=== PATIENT | female | born 1980 | race Caucasian/White ===

== ENCOUNTER 2021-07-08 12:35 | Emergency (ER) | payer OTHER, SELFPAY ==
--- NOTE | ~2021-07-08 | CT_ITS ---
EXAMINATION: CT SOFT TISSUE NECK WITH CONTRAST CLINICAL INFORMATION: Significant swelling to left side of neck. COMPARISON: None TECHNIQUE: Following the intravenous administration of 60 mL of Omnipaque 350 intravenous contrast, helical imaging was performed in the axial plane with generation of coronal and sagittal reformatted images. This CT examination was performed using dose optimization techniques as appropriate, variously including the following: *Automated exposure control *Adjustment of mA and/or kV according to patient size (this includes techniques or standardized protocols for targeted exams where dose is matched to indication/reason for exam; i.e. extremities or head) *Use of iterative reconstruction technique DLP: 424 mGy-cm FINDINGS: There is left-sided multilevel cervical adenopathy, the largest lymph node at the level II level measuring up to 2 cm in diameter. A left-sided level III lymph node demonstrates mild heterogeneous low-density change and peripheral enhancement, measuring 1.4 cm in long axis measurement the axial plane. No contour abnormality or pathologic enhancement is seen within the oral cavity, pharyngeal mucosal space, or larynx. The thyroid gland is normal. The submandibular and parotid glands are homogeneous in attenuation. No right-sided cervical adenopathy is evident. Internal jugular chain lymph nodes on the right side measure up to 1 cm in diameter. The airway is normally maintained. The superior mediastinum and visualized portions of the axillae appear normal. There are mild subsegmental atelectatic changes at the lung apices. No acute osseous abnormality seen. Mild to moderate lower cervical spondylosis noted. There is periapical lucency associated with the left maxillary canine. Scattered dental caries noted. The imaged paranasal sinuses, mastoid air cells, and middle ear cavities are well aerated. The TMJs are normal. The orbits appear normal. The imaged portions of the brain demonstrate no acute abnormality the visualized intracranial venous sinuses opacify normally. CT/CT soft tissue neck w con IMPRESSION: Multilevel left-sided cervical adenopathy of indeterminate etiology. Mild surrounding soft tissue reticulation which may indicate an underlying infectious or inflammatory disease process. A lymphoproliferative disease process cannot be ruled out on the basis of imaging. Recommend clinical correlation.
[2021-07-08 12:43] VITALS: BP 152/89; PULSE 86; RESP 18; TEMP 36.9; O2SAT 99; BMI 29.2
--- NOTE | 2021-07-08 13:09 | ED_ITS ---
HPI - General Adult General Chief complaint: General Medical Stated complaint: sore on tongue swollen neck Time Seen by Provider: 07/08/21 13:09 Source: patient Mode of arrival: ambulatory Limitations: no limitations History of Present Illness HPI narrative: Patient is a 41 year old female presenting to the emergency department today with a tongue lesion. Patient states that for the last few days, she has noticed a lesion on the left side of her tongue that she would like to be examined today. Patient states that she also noticed a growth on the left side of her neck that she would like checked out. Patient denies any dizziness, lightheadedness, abdominal pain, nausea, vomiting, fever, chills, blurry vision, double vision, loss of vision, chest pain, difficulty breathing, shortness of breath, back pain, night sweats, pain with urination, increased urinary frequency, increased urinary urgency, blood in her urine or stool, syncope or a near syncopal episode, recent trauma or falls, bowel incontinence, bladder incontinence, bowel retention, bladder retention, or any other complaints at this time. Patient states that she had COVID a few weeks ago and has a family history of cancer. Onset (ago): day(s) Relieving factors: none Exacerbating factors: none Related Data Previous Rx's Medication Instructions Recorded amoxicillin 875 mg-potassium 1 tab PO BID 10 Days #20 tab 07/08/21 clavulanate 125 mg tablet (Augmentin) Allergies Allergy/AdvReac Type Severity Reaction Status Date / Time No Known Allergies Allergy Verified 07/08/21 13:13 Review of Systems Verdana 4l Constitutional: Verdana 4d Constitutional: Verdana 4d Verdana 4d Reports no additional constitutional complaints, Denies chills, Denies fever(s) and Denies night sweats Verdana 4l Eyes: Verdana 4d Verdana 4d Eyes: Verdana 4d Reports no additional eye complaints, Denies blurry vision, Denies change in vision, Denies diplopia, Denies eye discharge, Denies loss of vision and Denies eye pain Verdana 4l ENT: Verdana 4d Denies dizziness Verdana 4d Comments: Verdana 4d Verdana 4d tongue lesion, left sided neck mass Verdana 4d Verdana 4l Cardiovascular: Verdana 4d Cardiovascular: Verdana 4d Verdana 4d Reports no additional cardiovascular complaints, Denies chest pain, Denies lightheadedness, Denies Loss of Consciousness and Denies dyspnea Verdana 4l Respiratory: Verdana 4d Verdana 4d Respiratory: Verdana 4d Reports no additional respiratory complaints and Denies dyspnea Verdana 4l Gastrointestinal: Verdana 4d Gastrointestinal: Verdana 4d Verdana 4d Reports no additional gastrointestinal complaints, Denies abdominal pain, Denies melena, Denies hematochezia, Denies change in bowel habits and Denies change in stool character Verdana 4l Genitourinary: Verdana 4d Verdana 4d Genitourinary: Verdana 4d Denies hematuria, Denies urinary frequency, Denies dysuria, Denies urinary incontinence, Denies urinary hesitancy and Denies urinary urgency Verdana 4l Musculoskeletal: Verdana 4d Musculoskeletal: Verdana 4d Verdana 4d Reports no additional musculoskeletal complaints, Denies numbness and Denies tingling Verdana 4l Neurologic: Verdana 4d Denies dizziness, Denies loss of vision, Denies numbness and Denies tingling Verdana 4l Psychiatric: Verdana 4d Verdana 4d Psychiatric: Verdana 4d Reports no additional psychiatric complaints Verdana 4l Endocrine: Verdana 4d Verdana 4d Endocrine: Verdana 4d Reports no additional endocrine complaints Verdana 4l Hematologic/Lymphatic: Verdana 4d Hematologic/Lymphatic: Verdana 4d Verdana 4d Reports no additional hematologic/lymphatic complaints Verdana 4l Allergic/Immunologic: Verdana 4d Allergic/Immunologic: Verdana 4d Verdana 4d Reports no additional allergic/immunologic complaints PMFSH Past Medical History Attestation statement: The following information was validated with the patient. Source: old records reviewed Medical History History of treatment for substance use disorder No known health problems Social History Social History Advance Directives: No Advance Directives Information Provided: Yes Patient : No Physical Exam Verdana 4l Vital Signs: Verdana 4d Verdana 4d Vital Signs: Verdana 4d Verdana 4Bd Last Vital Signs Verdana 4d Dental Laboratory Supervisor New 4d Dental Laboratory Supervisor New 4d Temp 98.4 F 07/08/21 12:43 Dental Laboratory Supervisor New 4d Pulse 72 07/08/21 15:54 Dental Laboratory Supervisor New 4d Resp 18 07/08/21 15:54 BP 133/79 07/08/21 15:54 Pulse Ox 98 07/08/21 15:54 BMI result Body Mass Index 29.2 Const: General: cooperative, no acute distress, alert and awake Nutritional Appearance: well nourished Orientation/consciousness: patient oriented x3 Limitations: no limitations HENMT: Head: Yes normal to inspection and Yes atraumatic Ears: hearing grossly normal bilaterally and external ears normal General nose exam: Normal external nose present, no nasal discharge noted and no epistaxis Face and sinus: Yes normal facial exam, No abrasion and No laceration Mouth: Normal oral and palatal mucosa present, no drooling and no muffled voice Teeth and gingiva: caries, poor dentition and other (small lesion to the front left part of the tongue) Eyes: General: appearance normal, both eyes and all related structures Periorbital: periorbital findings normal Eyelids: Yes eyelids normal Conjunctivae: conjunctivae normal Pupils: Equal, round and reactive pupils present EOM: EOMs intact bilaterally Neck: Neck: Yes normal visual inspection and Yes full ROM Lymphatic: lymphadenopathy left anterior cervical single and large Chest: Chest palpation & inspection: normal inspection of the chest Resp: Effort & Inspection: normal respiratory effort and able to speak in complete sentences Auscultation: clear to auscultation bilaterally Cardio: Rate: regular rate Rhythm: regular rhythm GI: Inspection: Yes normal to inspection Neuro: General: patient oriented x3 and moves all extremities Cranial nerves: Yes Equal, round and reactive pupils present Cognition (Neuro): normal cognition Motor exam (neuro): 5/5 motor strength present throughout Sensory Exam: Normal double simultaneous stimulation for sensation Coordination: [id number] test normal Extrem: General: Yes normal to inspection, Yes full ROM and Yes capillary refill normal Psych: Appearance: grossly normal Mental Status: mental status grossly normal A ffect: normal affect Attitude: cooperative Thought process: Normal thought process present Thought content: Normal thought content present Insight: Good insight present (Psych) Medical Decision Making MDM Narrative Medical decision making narrative: Patient is a 41 year old female presenting to the emergency department today with a tongue lesion and left sided neck swelling. Patient's physical exam showed a relatively large swollen lymph node on the left side of her cervical neck as well as a small avulsion type lesion on the tip of the left side of her tongue. Patient's blood work showed a leukopenia but no additional signs of a hematologic or oncologic concern. I suspect the patient's leukopenia is secondary to the patient's recent COVID-19 infection. Patient's ESR and CRP were slightly elevated. Patient's CT soft tissue neck showed multilevel left-sided cervical adenopathy of indeterminate etiology, mild surrounding soft tissue reticulation which may indicate an underlying infectious or inflammatory disease process, lymphoproliferative disease process cannot be ruled out on the basis of imaging. Recommend clinical correlation. I'm suspicious of an infectious process due to the patients extensive poor dentition and dental caries. Patient will be treated with antibiotics and given strict return precautions as well as follow up information for a Heme/Onc provider to ensure follow up on the cervical lymphadenopathy. I explained my physical exam findings as well as all test results to the patient. I answered all questions asked by the patient. I stresse d the importance of the patient taking her medication as prescribed. I stressed the importance of the patient following up with her primary care provider, dentist, and heme/onc provider. I stressed the importance of the patient returning to the emergency department immediately if her symptoms were to worsen or if she were to develop any dizziness, shortness of breath, difficulty breathing, chest pain, blurry vision, loss of vision, nausea, vomiting, abdominal pain, fever, chills, back pain, or any other complaints. Patient verbalized agreement and understanding with this treatment plan and discharge. Differential Diagnosis Differential Diagnosis: lymphoma, dental abscess, peritonsilar abscess Medical Records Medical records reviewed: Yes I reviewed the patient's medical records. Lab Data Lab results reviewed: Yes I reviewed the patient's lab results. Result diagrams: 07/08/21 13:47 07/08/21 13:47 Labs: Lab Results 07/08/21 07/08/21 07/08/21 Range/Units 13:47 13:47 13:47 WBC 3.8 L (4.8-10.8) X10*3/uL RBC 4.22 (4.20-5.50) X10*6/uL Hgb 12.1 (12.0-16.0) g/dl Hct 35.7 L (37.0-47.0) % MCV 84.6 (80.0-98.0) fL MCH 28.7 (27.0-33.0) pg MCHC 33.9 (31.0-35.0) g/dl RDW 12.0 (11.0-16.0) % Plt Count 168 (160-400) X10*3/uL MPV 9.9 (9.4-12.3) fL Immature Gran % (Auto) 0.5 H (0.0-0.4) % Neut % (Auto) 45.3 (45-73) % Lymph % (Auto) 34.6 (20-40) % Lipscomb % (Auto) 15.6 H (2-11) % Eos % (Auto) 3.2 (0-4) % Baso % (Auto) 0.8 (0-2) % Lymph # (Auto) 1.3 (1.2-4.9) X10*3/uL Lipscomb # (Auto) 0.6 (0.1-1.2) X10*3/uL Eos # (Auto) 0.1 (0.0-0.4) X10*3/uL Baso # (Auto) 0.0 (0.0-0.2) X10*3/uL Abs Immat Gran (auto) 0.02 (0.00-0.03) X10*3/uL Absolute Neuts (auto) 1.7 L (2.0-8.3) x10*3/uL Absolute Nucleated RBC 0.000 (0.0-0.012) X10*3/uL Nucleated RBC % (auto) 0.0 (0.0-0.2) /100WBC ESR (0-20) MM/HR Sodium 141 (135-145) mmol/L Potassium 4.9 (3.3-5.1) mmol/L Chloride 107 (96-108) mmol/L Carbon Dioxide 26 (22-29) mmol/L Anion Gap 13 (12-20) BUN 12 (9-16) mg/dL Creatinine 0.82 (0.5-1.4) mg/dL Estim Creat Clear Calc 92.6 Estimated GFR > 60 Fasting Glucose 100 H (60-99) mg/dL Calcium 9.0 (8.4-10.2) mg/dL Magnesium 1.9 (1.6-2.6) mg/dL Total Bilirubin 0.4 (0.0-1.0) mg/dL AST 34 H (5-31) U/L ALT 41 H (0-31) U/L Alkaline Phosphatase 110 (39-117) U/L C-Reactive Protein 3.62 H (< or = 0.50) mg/dL C-React Prot High Sens Total Protein 7.6 (6.5-8.0) g/dL Albumin 4.0 (3.5-5.0) g/dL HIV-1 RNA copies/mL Cancelled HIV-1 RNA logcopies/mL Cancelled 07/08/21 07/08/21 Range/Units 13:47 13:47 WBC (4.8-10.8) X10*3/uL RBC (4.20-5.50) X10*6/uL Hgb (12.0-16.0) g/dl Hct (37.0-47.0) % MCV (80.0-98.0) fL MCH (27.0-33.0) pg MCHC (31.0-35.0) g/dl RDW (11.0-16.0) % Plt Count (160-400) X10*3/uL MPV (9.4-12.3) fL Immature Gran % (Auto) (0.0-0.4) % Neut % (Auto) (45-73) % Lymph % (Auto) (20-40) % Lipscomb % (Auto) (2-11) % Eos % (Auto) (0-4) % Baso % (Auto) (0-2) % Lymph # (Auto) (1.2-4.9) X10*3/uL [place]comb # (Auto) (0.1-1.2) X10*3/uL Eos # (Auto) (0.0-0.4) X10*3/uL Baso # (Auto) (0.0-0.2) X10*3/uL Abs Immat Gran (auto) (0.00-0.03) X10*3/uL Absolute Neuts (auto) (2.0-8.3) x10*3/uL Absolute Nucleated RBC (0.0-0.012) X10*3/uL Nucleated RBC % (auto) (0.0-0.2) /100WBC ESR 31 H (0-20) MM/HR Sodium (135-145) mmol/L Potassium (3.3-5.1) mmol/L Chloride (96-108) mmol/L Carbon Dioxide (22-29) mmol/L Anion Gap (12-20) BUN (9-16) mg/dL Creatinine (0.5-1.4) mg/dL Estim Creat Clear Calc Estimated GFR Fasting Glucose (60-99) mg/dL Calcium (8.4-10.2) mg/dL Magnesium (1.6-2.6) mg/dL Total Bilirubin (0.0-1.0) mg/dL AST (5-31) U/L ALT (0-31) U/L Alkaline Phosphatase (39-117) U/L C-Reactive Protein (< or = 0.50) mg/dL C-React Prot High Sens Cancelled Total Protein (6.5-8.0) g/dL Albumin (3.5-5.0) g/dL HIV-1 RNA copies/mL HIV-1 RNA logcopies/mL Imaging Data CT soft tissue neck: Attestation: I personally reviewed and interpreted this imaging study as follows: Radiologist's impression: EXAMINATION: CT SOFT TISSUE NECK WITH CONTRAST CLINICAL INFORMATION: Significant swelling to left side of neck.? COMPARISON: None? TECHNIQUE: Following the intravenous administration of 60 mL of Omnipaque 350 intravenous contrast, helical imaging was performed in the axial plane with generation of coronal and sagittal reformatted images. This CT examination was performed using dose optimization techniques as appropriate, variously including the following: *Automated exposure control *Adjustment of mA and/or kV according to patient size (this includes techniques or standardized protocols for targeted exams where dose is matched to indication/reason for exam; i.e. extremities or head) *Use of iterative reconstruction technique DLP: 424 mGy-cm FINDINGS: There is left-sided multilevel cervical adenopathy, the largest lymph node at the level II level measuring up to 2 cm in diameter. A left-sided level III lymph node demonstrates mild heterogeneous low-density change and peripheral enhancement, measuring 1.4 cm in long axis measurement the axial plane. No contour abnormality or pathologic enhancement is seen within the oral cavity, pharyngeal mucosal space, or larynx. The thyroid gland is normal. The submandibular and parotid glands are homogeneous in attenuation. No right-sided cervical adenopathy is evident. Internal jugular chain lymph nodes on the right side measure up to 1 cm in diameter. The airway is normally maintained. The superior mediastinum and visualized portions of the axillae appear normal. There are mild subsegmental atelectatic changes at the lung apices. No acute osseous abnormality seen. Mild to moderate lower cervical spondylosis noted. There is periapical lucency associated with the left maxillary canine. Scattered dental caries noted. The imaged paranasal sinuses, mastoid air cells, and middle ear cavities are well aerated. The TMJs are normal. The orbits appear normal. The imaged portions of the brain demonstrate no acute abnormality the visualized intracranial venous sinuses opacify normally. CT/CT soft tissue neck w con IMPRESSION: Multilevel left-sided cervical adenopathy of indeterminate etiology. Mild surrounding soft tissue reticulation which may indicate an underlying infectious or inflammatory disease process. A lymphoproliferative disease process cannot be ruled out on the basis of imaging. Recommend clinical correlation. Dictated By: ROMEO HILLIARD MD Signed By: Electronically signed by ROMEO HILLIARD MD 07/08/21 1539 Discharge Plan Discharge Clinical Impression: Lymphadenopathy Patient Disposition: Home, Self-Care Instructions: Lymphadenopathy (ED) Additional Instructions: Call to discuss finding and establishing with a primary care provider. Call or visit any of the clinics below to establish with a dentist: [facility] [address] [place] [address] [facility] [address] [facility], [address] [place] [address] [address] [facility] [address] [place] [id number] [facility] [address] [place] [address] [place] [address] [place] [address] Prescriptions: New amoxicillin-pot clavulanate [Augmentin] 875-125 mg tablet 1 tab PO BID 10 Days Qty: 20 0RF Referrals: Socorro Rosenthal MD [Physician] - 2 days Interventions: ED Discharge Assessment Last Done: 07/08/21 16:07 Discharge Date/Time: 07/08/21 16:08 Print Language: Albanian
[2021-07-08 13:53] LABS: MANUAL DIFF FLAG NO
[2021-07-08 13:59] LABS: Basophils Percent Auto 0.8 % (0-2); Eosinophils Absolute Auto 0.1 X10*3/uL (0.0-0.4); Eosinophils Percent Auto 3.2 % (0-4); Hematocrit 35.7 % (37.0-47.0); Hemoglobin 12.1 g/dl (12.0-16.0); Imm Gran Abs Auto 0.02 X10*3/uL (0.00-0.03); Imm Gran Pct Auto 0.5 % (0.0-0.4); Lymphocytes Absolute Auto 1.3 X10*3/uL (1.2-4.9); Lymphocytes Percent Auto 34.6 % (20-40); Mean Corpuscular HGB Conc 33.9 g/dl (31.0-35.0); Mean Corpuscular Hemoglobin 28.7 pg (27.0-33.0); Mean Corpuscular Volume 84.6 fL (80.0-98.0); Mean Platelet Volume 9.9 fL (9.4-12.3); Monocytes Absolute Auto 0.6 X10*3/uL (0.1-1.2); Monocytes Percent Auto 15.6 % (2-11); Neutrophils Absolute Auto 1.7 x10*3/uL (2.0-8.3); Neutrophils Percent Auto 45.3 % (45-73); Platelet Count 168 X10*3/uL (160-400); Red Blood Count 4.22 X10*6/uL (4.20-5.50); White Blood Count 3.8 X10*3/uL (4.8-10.8)
[2021-07-08 14:28] LABS: Erythrocyte Sedimentation Rate 31 MM/HR (0-20)
[2021-07-08 14:33] LABS: Alanine Aminotransferase 41 U/L (0-31); Alkaline Phosphatase 110 U/L (39-117); Anion Gap 13 (12-20); Aspartate Amino Transferase 34 U/L (5-31); Bilirubin Total 0.4 mg/dL (0.0-1.0); Blood Urea Nitrogen 12 mg/dL (9-16); C Reactive Protein 3.62 mg/dL (< or = 0.50); Carbon Dioxide 26 mmol/L (22-29); Chloride 107 mmol/L (96-108); Creatinine Clr Calc Pharmacy 92.6; Estimated Glomerular Filt Rate > 60; Glucose Fasting 100 mg/dL (60-99); Magnesium 1.9 mg/dL (1.6-2.6); Potassium 4.9 mmol/L (3.3-5.1); Sodium 141 mmol/L (135-145); Total Protein 7.6 g/dL (6.5-8.0)
[2021-07-08] MEDS: iohexoL 350 MG/ML 75 ML INFUS..BTL 60 ML IV (15:19)
[2021-07-08 15:54] VITALS: BP 133/79; PULSE 72; RESP 18; O2SAT 98
[2021-07-09 08:05] LABS: HIV AB/AG Nonreactive (Nonreactive); HIV Num 1 0.05 S/CO (0.00-0.99)
== END 2021-07-08 16:08 | disposition home or self-care (01) ==
PROVIDERS: Physician Assistant Medical; Emergency Provider Emergency Medicine
DX: R59.1 Generalized enlarged lymph nodes (principal); M54.2 Cervicalgia; K14.9 Disease of tongue, unspecified; Z79.899 Other long term (current) drug therapy
CPT/HCPCS: 36415; 70491; 80053; 83735; 85025; 85652; 86140; 86141; 87389; 87536; 99284; Q9967

== ENCOUNTER 2021-10-11 15:41 | Emergency (ER) | payer OTHER, SELFPAY ==
[2021-10-11 16:42] VITALS: BP 106/63; PULSE 80; RESP 18; TEMP 36.6; O2SAT 97; BMI 30.9
[2021-10-11 17:06] LABS: Appearance Urine CLEAR; Color Urine YELLOW; Glucose Urine UA NEG (NEG); Leukocyte Esterase Urine NEG (NEG); Nitrite Urine NEG (NEG); PH 6.5 (5.0-8.0); UPreg QC Valid YES; Urine Blood NEG (NEG); Urine Ketones NEG (NEG); Urine Pregnancy NEGATIVE (NEGATIVE); Urine Protein NEG (NEG-TRACE)
--- NOTE | 2021-10-11 19:39 | ED_ITS ---
HPI - General Adult General Chief complaint: Back Pain/Injury Stated complaint: left sided back pain Time Seen by Provider: 10/11/21 18:28 Source: patient Mode of arrival: ambulatory Limitations: no limitations History of Present Illness HPI narrative: 41-year-old female presents to ED for left-sided back pain is worse on movement. Patient denies any recent trauma to the back, abdominal pain, flank pain, nausea, vomiting, fever, chills, dysuria,or hematuria. Related Data Previous Rx's Medication Instructions Recorded amoxicillin 875 mg-potassium 1 tab PO BID 10 Days #20 tab 07/08/21 clavulanate 125 mg tablet (Augmentin) cyclobenzaprine 10 mg tablet 10 mg PO TID PRN 7 Days #21 tab 10/11/21 Allergies Allergy/AdvReac Type Severity Reaction Status Date / Time No Known Allergies Allergy Verified 07/08/21 13:13 Review of Systems Review of Systems: Left-sided back pain Yes all other systems are reviewed and are negative FOR[facility], [facility] Past Medical History Medical History History of treatment for substance use disorder No known health problems Social History Social History Advance Directives: No Advance Directives Information Provided: No Physical Exam ED Vital Signs: Vital Signs - 24 hr 10/11/21 16:42 Temperature 98 F Pulse Rate 80 Respiratory Rate 18 Blood Pressure 106/63 Pulse Oximetry 97 BMI result Body Mass Index 30.9 Const General: cooperative, healthy appearing, comfortable, no acute distress, well developed and alert Orientation/consciousness: patient oriented x3 HENMT Head: Yes normal to inspection, Yes No palpable skull fracture present, Yes normocephalic and Yes atraumatic Eyes General: appearance normal, both eyes and all related structures Neck Neck: Yes normal visual inspection, Yes full ROM, Yes no lymphadenopathy, Yes no meningeal signs, Yes trachea midline, Yes supple, No anterior neck swelling and No tender Chest Chest palpation & inspection: normal inspection of the chest and normal palpation of entire chest wall Resp Effort & Inspection: normal respiratory effort and able to speak in complete sentences Auscultation: clear to auscultation bilaterally Cardio Jugular venous distension: no JVD Heart sounds: S1 normal heart sound present and S2 normal heart sound present GI Inspection: Yes normal to inspection and No abdominal wall ecchymosis Palpation (GI): Soft to palpation, not firm, nontender, no guarding and not rigid General: No CVA tenderness and Yes no CVA tenderness Back/Spine/Pelvis Back: no CVA tenderness, No CVA tenderness and No back tenderness Back/spine/pelvis image: 1. Mild tenderness on palpation. Positive for pain on range of motion. Negative for ecchymosis, rash, or erythema. Skin General skin exam: no rashes or lesions noted and elasticity normal Neuro General: patient oriented x3, gait normal, moves all extremities, Normal light touch and pain sensation, no meningeal signs, no focal motor deficits and CN's II-XI intact bilaterally Extrem General: Yes normal to inspection and Yes full ROM Psych Appearance: grossly normal, well kempt and not disheveled Course Course Course Narrative: Urine analysis ordered. No need for any back x-ray negative for any spine tenderness. Reevaluation(s) Reevaluation #1: Urine came back negative for infection and negative for . Patient already has Motrin at home. Patient sleeping comfortably in bed. Patient to be discharged Time: 19:43 Medical Decision Making [facility] Narrative Medical decision making narrative: Back pain Lab Data Labs: Lab Results 10/11/21 10/11/21 Range/Units 16:55 16:55 Urine Color YELLOW Urine Appearance CLEAR Urine pH 6.5 (5.0-8.0) Ur Specific [place] 1.020 (1.005-1.025) Urine Protein NEG (NEG-TRACE) MG/DL Urine Glucose (UA) NEG (NEG) MG/DL Urine Ketones NEG (NEG) MG/DL Urine Blood NEG (NEG) Urine Nitrite NEG (NEG) Ur Leukocyte Esterase NEG (NEG) Urine Test NEGATIVE (NEGATIVE) Discharge Plan Discharge Clinical Impression: Strain of lumbar region, Back pain Patient Disposition: Home, Self-Care Instructions: Low Back Strain (ED), Acute Low Back Pain (ED) Additional Instructions: Return to the ED immediately for any arm abdominal pain, nausea, vomiting, flank pain, dysuria, hematuria, urinary/bowel incontinence, chills, fever, or any other concerning symptoms. Continue taking Motrin as indicated. Prescriptions: New cyclobenzaprine 10 mg tablet 10 mg PO TID PRN (Reason: muscle spasm) 7 Days Qty: 21 0RF Rx Instructions: Side effect of drowsiness. Do not take at work, heavy machinery lifting. or while driving No Action amoxicillin-pot clavulanate [Augmentin] 875-125 mg tablet 1 tab PO BID 10 Days Qty: 20 0RF Stand Alone Forms: Work/School Release Interventions: ED Discharge Assessment Last Done: 10/11/21 19:54 Discharge Date/Time: 10/11/21 19:55 Print Language: Namibian
== END 2021-10-11 19:55 | disposition home or self-care (01) ==
PROVIDERS: Emergency Provider Emergency Medicine
DX: S39.012A Strain of muscle, fascia and tendon of lower back, initial encounter (principal); X58.XXXA Exposure to other specified factors, initial encounter; Y93.9 Activity, unspecified; Y92.9 Unspecified place or not applicable; Y99.9 Unspecified external cause status
CPT/HCPCS: 81003; 81025; 99283